=== PATIENT | male | born 1975 | race Two or more races ===

== ENCOUNTER 2016-08-10 06:45 | Emergency (ER) | payer OTHER ==
[~2016-08-10] VITALS: Ht 170.2 cm; Wt 54.4 kg
[2016-08-10 06:53] VITALS: BP 131/84
--- NOTE | 2016-08-10 06:53 | PHYS DOC ---
Adult General Chief Complaint Chief Complaint: WRIST PAIN [facility] HPI Patient is a 41 year old male who presents with left wrist pain. He states he broke his wrist splint until approximately 2 weeks ago when he was allowed to remove the splint is been working. He states he ran out of his pain meds approximately 2 weeks ago in his wrist pain as being worse since he is using it more and more. He describes the pain is made worse with movement over his lateral aspect of his left wrist. He states he has numbness of his extremities had it ever since the initial injury. He states this is a Workmen's Comp claim. He denies any other injuries to it. Review of Systems Review of Systems Constitutional: Denies fever or chills [] Eyes: Denies change in visual acuity, redness, or eye pain [] HENT: Denies nasal congestion or sore throat [] Respiratory: Denies cough or shortness of breath [] Cardiovascular: No additional information not addressed in HPI [] GI: Denies abdominal pain, nausea, vomiting, bloody stools or diarrhea [] : Denies dysuria or hematuria [] Musculoskeletal: Denies back pain, positive for left wrist pain Integument: Denies rash or skin lesions [] Neurologic: Denies headache, focal weakness or sensory changes [] Endocrine: Denies polyuria or polydipsia [] Allergies Allergies Allergies Coded Allergies Type Severity Reaction Last Updated Verified No Known Drug Allergies 08/10/16 No Physical Exam Physical Exam Constitutional: Well developed, well nourished, no acute distress, non-toxic appearance. [] HENT: Normocephalic, atraumatic, bilateral external ears normal, oropharynx moist, no oral exudates, nose normal. [] Eyes: PERRLA, EOMI, conjunctiva normal, no discharge. [] Neck: Normal range of motion, no tenderness, supple, no stridor. [] Cardiovascular:Heart rate regular rhythm, no murmur [] Lungs & Thorax: Bilateral breath sounds clear to auscultation [] Abdomen: Bowel sounds normal, soft, no tenderness, no masses, no pulsatile masses. [] Skin: Warm, dry, no erythema, no rash. [] Back: No tenderness, no CVA tenderness. [] Extremities: Mild tenderness palpation over the left lateral risk without any ecchymosis, there are previous abrasion injuries that he states was from the initial injury. No swelling or erythema noted, radial artery and 2+ on the left sensation intact except for the thumb, motor intact able to flex extend fingers , thumb, wrist without difficulty, No cyanosis, no clubbing, ROM intact, no edema. [] Neurologic: Alert and oriented X 3, normal motor function, normal sensory function, no focal deficits noted. [] Psychologic: Affect normal, judgement normal, mood normal. [] Current Patient Data Vital Signs Vital Signs Date Time Temp Pulse Resp B/P Pulse Ox O2 Delivery O2 Flow Rate FiO2 08/10/16 06:53 97.6 87 20 100 Room Air 97.6 EKG EKG [] Radiology/Procedures Radiology/Procedures [] Impressions: Left wrist pain Course & Med Decision Making Course & Med Decision Making Pertinent Labs and Imaging studies reviewed. (See chart for details) At this point I'm going to prescribe Percocet and have him follow back up with his orthopedic physician/worker's comp physician. I do not believe he needs x- rays as he does not describe any injuries or other concerns. He has an appointment in 6 weeks estimated. To call and have an appointment for the next 2 -3 days. He is to return back to ER for worsening pain, any swelling, fevers, redness, or other concerns. Dragon Disclaimer Dragon Disclaimer This electronic medical record was generated, in whole or in part, using a voice recognition dictation system. Departure Departure Impression: Primary Impression: Wrist pain, left Disposition: 01 HOME, SELF-CARE Condition: STABLE Patient Instructions: Wrist Pain Scripts Oxycodone/Apap 5-325 (Percocet 5-325 Mg Tablet)1 Each Tablet1-2 Tab PO Q6HRS PRN PAIN #20 TAB Prov:SHRUTHI BRUMFIELD MD 08/10/16 SHRUTHI BRUMFIELD MD Aug 10, 2016 06:53
[2016-08-10] MEDS ORDERED: OXYC-323 PO ×2 (07:08→07:11)
== END 2016-08-10 07:27 | disposition home or self-care (01) ==
LOC: ER 06:45
DX: M25.532 Pain in left wrist (principal); R20.0 Anesthesia of skin
CPT/HCPCS: 99283

== ENCOUNTER 2016-10-28 08:39 | Emergency (ER) | payer OTHER ==
[~2016-10-28] VITALS: Ht 177.8 cm; Wt 71.7 kg
[~2016-10-28 08:39] MED LIST: OXYC-323 PO
--- NOTE | 2016-10-28 08:56 | PHYS DOC ---
Past Medical History Past Medical History: No Pertinent History Past Surgical History: No Surgical History Alcohol Use: None Drug Use: None Adult General Chief Complaint Chief Complaint: DENTAL PROBLEM HPI HPI Patient is a 41 year old male who presents with right lower dental pain. He states his been going on for last 5 days. He states he's never get up brushing her flossing his teeth. He states he did brush this morning. He states he's having pain in the right lower jaw. He denies any trouble swallowing, denies any changes in voice or trismus. Denies fevers chills nausea or vomiting. He does not have a dentist at this time. He denies any allergies medications or taking any medications. Review of Systems Review of Systems Constitutional: Denies fever or chills [] Eyes: Denies change in visual acuity, redness, or eye pain [] HENT: Denies nasal congestion or sore throat [] Respiratory: Denies cough or shortness of breath [] Cardiovascular: No additional information not addressed in HPI [] GI: Denies abdominal pain, nausea, vomiting, bloody stools or diarrhea [] : Denies dysuria or hematuria [] Musculoskeletal: Denies back pain or joint pain [] Integument: Denies rash or skin lesions [] Neurologic: Denies headache, focal weakness or sensory changes [] Endocrine: Denies polyuria or polydipsia [] Allergies Allergies Allergies Coded Allergies Type Severity Reaction Last Updated Verified No Known Drug Allergies 08/10/16 No Physical Exam Physical Exam Constitutional: Well developed, well nourished, no acute distress, non-toxic appearance. [] HENT: Normocephalic, atraumatic, bilateral external ears normal, oropharynx moist, no oral exudates, nose normal. Tender palpation of the right lower jaw without any abscess, no [place] angina, posterior pharynx clear. Multiple sustained teeth. Eyes: PERRLA, EOMI, conjunctiva normal, no discharge. [] Neck: Normal range of motion, no tenderness, supple, no stridor. [] Cardiovascular:Heart rate regular rhythm, no murmur [] Lungs & Thorax: Bilateral breath sounds clear to auscultation [] Abdomen: Bowel sounds normal, soft, no tenderness, no masses, no pulsatile masses. [] Skin: Warm, dry, no erythema, no rash. [] Back: No tenderness, no CVA tenderness. [] Extremities: No tenderness, no cyanosis, no clubbing, ROM intact, no edema. [] Neurologic: Alert and oriented X 3, normal motor function, normal sensory function, no focal deficits noted. [] Psychologic: Affect normal, judgement normal, mood normal. [] Current Patient Data Vital Signs Vital Signs Date Time Temp Pulse Resp B/P (MAP) Pulse Ox O2 Delivery O2 Flow Rate FiO2 10/28/16 09:02 98.0 70 18 100 Room Air 98.0 EKG EKG [] Radiology/Procedures Radiology/Procedures [] Impressions: Dental pain Course & Med Decision Making Course & Med Decision Making Pertinent Labs and Imaging studies reviewed. (See chart for details) I'll see emergent issues at this time. We'll discharge with [facility] for 7 days and [place]. Return precautions given and is to follow-up with [facility]. He is instructed not to drive or taking [place]. Return to ER for severe pain, trouble swallowing, breathing, changes in voice or other concerns. Dragon Disclaimer Dragon Disclaimer This electronic medical record was generated, in whole or in part, using a voice recognition dictation system. Departure Departure Impression: Primary Impression: Pain, dental Disposition: 01 HOME, SELF-CARE Condition: STABLE Referrals: NO PCP (PCP) Patient Instructions: Dental Car[facility] Additional Instructions: You will need to follow-up with a dentist within the next 4-5 days. Return the ER for severe pain, troubles breathing, swallowing, changes in voice or other concerns. You will need to take antibiotics as instructed. Do not drive or taking [place] as it is a narcotic pain medicine and can impair judgment and make you sleepy. Scripts Hydrocodone/Apap 5-325 (NORCO 5-325 TABLET) 1 Each Tablet 1-2 TAB PO Q6HRS Y for PAIN, #20 TAB Prov: SHRUTHI BRUMFIELD MD 10/28/16 Penicillin V Potassium (PENICILLIN V POTASSIUM) 500 Mg Tablet 1 TAB PO QID, #40 TAB Prov: SHRUTHI BRUMFIELD MD 10/28/16 SHRUTHI BRUMFIELD MD Oct 28, 2016 08:56
[2016-10-28 09:02] VITALS: BP 142/77
[2016-10-28] MEDS ORDERED: PENI500T PO (09:23)
[2016-10-28] MEDS ORDERED: HYDR-971 PO (09:23)
== END 2016-10-28 09:35 | disposition home or self-care (01) ==
LOC: ER 08:39
DX: K08.89 Other specified disorders of teeth and supporting structures (principal); R68.84 Jaw pain
CPT/HCPCS: 99283